=== PATIENT | male | born 1950 | race Caucasian/White ===

== ENCOUNTER 2023-01-02 07:49 | Day surgery (SDC) | payer MEDICARE, SELFPAY ==
--- NOTE | 2023-01-02 06:36 | W.ANESPRE ---
General Info Date of Service Date Performed: 01/02/23 Height: 5 ft 10 in Weight: 113.398 kg Body Mass Index (BMI): 35.9 Surgical Procedure: Operation Date: 01/02/23 10:40 Proposed Procedure Side Surgeon p Cataract Extraction with IOL Implant Right Néstor Laureano MD Meds Allergies and Home Medications Allergies Allergy/AdvReac Type Severity Reaction Status Date / Time chlorthalidone Allergy Skin Rash Verified 01/02/23 09:40 Home Medication Medication Instructions Recorded metformin 850 mg tablet 850 mg PO BIDWMEAL 11/04/15 albuterol sulfate 90 mcg/actuation 2 puff inhalation DIRECTED 12/29/22 aerosol inhaler aspirin 81 mg capsule,delayed 81 mg PO DAILY 12/29/22 release calcium polycarbophil 625 mg 625 mg PO QAM 12/29/22 tablet (FiberCon) felodipine 5 mg tablet,extended 5 mg PO DAILY 12/29/22 release 24 hr fluticasone propionate 50 2 spray intranasal DAILY 12/29/22 mcg/actuation nasal spray,suspension (Flonase Allergy Relief) lisinopril 40 mg tablet 40 mg PO DAILY 12/29/22 simvastatin 20 mg tablet 20 mg PO HS 12/29/22 triamcinolone acetonide 0.1 % 1 applic topical DIRECTED 12/29/22 topical ointment umeclidinium 62.5 mcg/actuation 1 inh inhalation DAILY 12/29/22 blister powder for inhalation (Incruse Ellipta) Current Visit Medications: Current Medications Generic Name Dose Route Start Last Admin Trade Name Freq PRN Reason Stop Dose Admin Acetaminophen 1,000 mg 01/02/23 06:00 Acetaminophen 500 Mg Tab PO Q4H PRN PRN Miscellaneous Medication 0 ml 01/02/23 06:00 Tropicam./Phenyleph. (1/2.5%) 5 Ml Btl OD DIRECTED [facility] Miscellaneous Medication 0 ml 01/02/23 06:00 Prednisolone 1%, Moxifloxacin 0.5%, Nepafenac 0.1% 5ml Btl OD DIRECTED [facility] Tetracaine HCl 0 ml 01/02/23 06:00 Tetracaine 0.5% 4 Ml Btl OD DIRECTED [facility] PFSH Active Problems Active Problems: Problem Status Onset Code Posterior subcapsular age-related cataract, right eye H25.041 Nuclear sclerotic cataract of right eye H25.11 Medical History Medical History Backache COPD (chronic obstructive pulmonary disease) Gout Hypertensive disorder Localized primary carpometacarpal osteoarthrosis Stasis dermatitis Tobacco dependence Trigger finger Type 2 diabetes mellitus Surgical History Surgical History (Updated 01/02/23 @ 08:40 by Sirena Hussein) Hx of hernia repair Hx of thumb surgery Tobacco Smoking/Tobacco Use Status: Current every day Tobacco Type: cigarettes Alcohol Alcohol Intake: never Substance Use Substance use: Never Substance use type: does not use Vital Signs and Lab Results Lab Results Blood Type / Crossmatch: No Data to Display Complete Blood Count: No Data to Display Complete Metabolic Panel: No Data to Display Liver Function Panel: No Data to Display Coagulation Panel: No Data to Display Cardiac Panel: No Data to Display Arterial Blood Gas: No Data to Display Venous Blood Gas: No Data to Display Pancreas Panel: No Data to Display Thyroid Panel: No Data to Display Infectious Disease: No Data to Display Blood Cultures: No Data to Display Toxicology Panel: No Data to Display Anesthesia Assessment and Plan Anesthesia History Personal History: No History of Anesthesia Complications Family History: No Family History of Anesthesia Complications Exercise Tolerance Exercise Tolerance: Metabolic Equivalents>4 Pertinent Negatives Pertinent Negatives: No Symptoms of GERD and No History of CVA/TIA Cardiac & Pulmonary Exam Cardiac Exam: Normal S1/S2 Heart Sounds Pulmonary Exam: Clear Bilateral Breath Sounds Implantable Cardiac Device Does patient have a Pacemaker or an ICD?: No Airway Exam Known Difficult Airway: No Mallampati Class: 2 Mouth Opening: Normal (> 3cm) Thyromental Distance: Greater than 3 cm Neck Range of Motion: Full ROM Neck Circumference: Normal Teeth Condition: Edentulous (Upper. Four lower teeth, per patient they are secure. ) ASA Classification ASA Score: ASA 3 Emergency Case?: No NPO Status NPO Status: NPO Clears >2 hours, Solids >8 hours Anesthesia Plan Resuscitation Status: Full Code Anesthesia Technique: MAC Anesthesia Airway Planned: Natural Airway Monitors Used: Standard Monitors
--- NOTE | 2023-01-02 06:44 | W.PREOPHP ---
Assessment and Plan Assessment and plan (1) Posterior subcapsular age-related cataract, right eye: Status: Acute Assessment and plan: Assessment: Visually significant cataract of the right eye. Plan: Cataract extraction with lens implantation of the right eye. (2) Nuclear sclerotic cataract of right eye: Status: Acute Assessment and plan: Assessment: Visually significant cataract of the right eye. Plan: Cataract extraction with lens implantation of the right eye. History of Present Illness History of Present Illness Chief Complaint: Progressive decreased vision, right eye Narrative: The patient is a 72-year-old male referred by Dr. Lazaro with complaints of progressive decreased vision over the past several months, right eye worse than left. He notes blurred vision at both distance and near, particularly when looking through a rifle scope and significant glare from headlights. On examination he is noted noted to have a significant nuclear/posterior subcapsular cataract in the right eye with visual acuity of 20/200. The option of cataract surgery was offered to the patient and he wished to proceed. Review of Systems All systems reviewed & are unremarkable except as noted in HPI and below PFSH All Active Problems Nuclear sclerotic cataract of right eye (Acute) Posterior subcapsular age-related cataract, right eye (Acute) Medical History Backache COPD (chronic obstructive pulmonary disease) Gout Hypertensive disorder Localized primary carpometacarpal osteoarthrosis Stasis dermatitis Tobacco dependence Trigger finger Type 2 diabetes mellitus Surgical History (Updated 01/02/23 @ 08:40 by Sirena Hussein) Hx of hernia repair Hx of thumb surgery Social History Smoking/Tobacco Use Status: Current every day Tobacco Type: cigarettes Smoking risk assessment performed?: Yes Alcohol Intake: never Drug use: Never Substance use type: does not use Do you feel safe at home: Yes Do you feel safe in your relationship?: Yes Meds Allergies and Home Medications Allergies Allergy/AdvReac Type Severity Reaction Status Date / Time chlorthalidone Allergy Skin Rash Verified 01/02/23 09:40 Home Medications Medication Instructions Recorded Confirmed Type metformin 850 mg tablet 850 mg PO BIDWMEAL 11/04/15 01/02/23 History albuterol sulfate 90 mcg/actuation 2 puff inhalation DIRECTED 12/29/22 12/30/22 History aerosol inhaler aspirin 81 mg capsule,delayed 81 mg PO DAILY 12/29/22 01/02/23 History release calcium polycarbophil 625 mg 625 mg PO QAM 12/29/22 01/02/23 History tablet (FiberCon) felodipine 5 mg tablet,extended 5 mg PO DAILY 12/29/22 01/02/23 History release 24 hr fluticasone propionate 50 2 spray intranasal DAILY 12/29/22 01/02/23 History mcg/actuation nasal spray,suspension (Flonase Allergy Relief) lisinopril 40 mg tablet 40 mg PO DAILY 12/29/22 01/02/23 History simvastatin 20 mg tablet 20 mg PO HS 12/29/22 01/02/23 History triamcinolone acetonide 0.1 % 1 applic topical DIRECTED 12/29/22 12/30/22 History topical ointment umeclidinium 62.5 mcg/actuation 1 inh inhalation DAILY 12/29/22 01/02/23 History blister powder for inhalation (Incruse Ellipta) Exam Eyes Other: Most recent examination reveals uncorrected visual acuity of 20/200 OD, 20/20 OS. Intraocular pressure is 20 OU. Extraocular motility is full. Slit-lamp examination is significant for pupils dilating to 6 mm OU. In the right eye a moderate nuclear cataract is present with severe posterior subcapsular cataract. There is no view of the retina in the right eye due to the dense cataract. In the left eye there is a mild nuclear and cortical cataract. Disc cupping is 0.65 OD, 0.55 OS. Resp Auscultation: clear to auscultation bilaterally Cardio Rate: regular rate Rhythm: regular rhythm
[2023-01-02 08:26] VITALS: BMI 35.9
[2023-01-02] MEDS: Tropicam./Phenyleph. (1/2.5%) 5 ML BTL OD ×3 (08:45→09:03)
[2023-01-02] MEDS: Balanced Salt Soln.-PLUS 500 ML BAG (10:06)
[2023-01-02] MEDS: Tetracaine 0.5% 4 ML BTL OD (10:06)
[2023-01-02] MEDS: Lidocaine 2% Jelly 6 ML SYR (10:07)
[2023-01-02] MEDS: Duovisc Viscoelastic System EACH 1 EACH (10:07)
[2023-01-02] MEDS: Lidocaine 1% Pres-Free 5 ML VIAL (10:07)
[2023-01-02] MEDS: Trypan Blue 0.06% 0.5 ML SYR (10:09)
[2023-01-02] MEDS: Povidone-Iodine Ophth 30 ML BTL (10:09)
--- NOTE | 2023-01-02 10:27 | W.PM.DSUDISC ---
Date of service: 01/02/23 Time of Service: 10:27 Discharge Plan Disposition Patient Disposition: Home Discharge Details Attending Provider: Néstor Laureano Primary Care Provider: Ember Chacon Home Meds and New Rx's Prescriptions: No Action metformin 850 MG tablet 850 mg PO BIDWMEAL felodipine 5 mg Tablet Extended Release 24 Hr 5 mg PO DAILY aspirin 81 mg Capsule,Delayed Release(Dr/Ec) 81 mg PO DAILY simvastatin 20 mg Tablet 20 mg PO HS triamcinolone acetonide 0.1 % Ointment 1 applic TOPICAL DIRECTED calcium polycarbophil [FiberCon] 625 mg Tablet 625 mg PO QAM albuterol sulfate 90 mcg/actuation Hfa Aerosol Inhaler 2 puff INHALATION DIRECTED lisinopril 40 mg Tablet 40 mg PO DAILY fluticasone propionate [Flonase Allergy Relief] 50 mcg/actuation [place],Suspension 2 spray INTRANASAL DAILY Incruse Ellipta 62.5 mcg/actuation Blister With Device 1 inh INHALATION DAILY Discharge Instructions Stand Alone Forms: Post-op Topical Cataract, Yosvany King (DSU) Discharge Orders Discharge Orders: Discharge Order (Routine); Ordered 01/02/23 Ordered By: Néstor Laureano DS: Diagnosis Discharge Diagnosis (1) Posterior subcapsular age-related cataract, right eye: Status: Resolved (2) Nuclear sclerotic cataract of right eye: Status: Resolved
--- NOTE | 2023-01-02 10:28 | ROE_ITS ---
Date of service: 01/02/23 Time of Service: 10:28 Operative Note Operative Note DATE OF PROCEDURE: 01/02/23 PRE-OP DIAGNOSIS: Dense nuclear/posterior subcapsular cataract, right eye Poor red reflex, right eye secondary to cataract POST-OP DIAGNOSIS: same PROCEDURE: Cataract extraction using phacoemulsification with intraocular lens implant, right eye SURGEON: Néstor Laureano ANESTHESIA TYPE: Local By Surgeon and MAC Refer to Anesthesia Record ESTIMATED BLOOD LOSS: 0 PATHOLOGY: none sent COMPLICATIONS: None Patient was transported to: same day Patient's condition: stable Implants: Chris [employer] Chris Tecnis Eyhance [id number] Indications: Progressive visual loss due to cataract, right eye Procedure Description: CATARACT SURGERY OPERATIVE REPORT PREOPERATIVE DIAGNOSIS: 1. Dense nuclear/posterior subcapsular cataract, right eye 2. Poor red reflex, right eye secondary to cataract POSTOPERATIVE DIAGNOSIS: Same OPERATION: 1. Cataract extraction using phacoemulsification with posterior chamber intraocular lens implant, right eye. 2. Capsular staining with VisionBlue IOL: IOL Extension Course Coordinator/Model: Chris [employer] Chris Tecnis Eyhance [id number] IOL Power: + 21.5 diopters IOL Serial Number: [id number] Optic Diameter: 6.0mm Haptic/Overall Diameter: 13.0mm PHACO INFO: Sulaiman Crzyfishurion Vision System with OZil and Active Fluidics Cumulative Dispersed Energy (CDE): 31.42 seconds SURGEON: Néstor Laureano MD, EJ ANESTHESIA: Monitored Anesthesia Care (MAC), with local sub-tenon's anesthetic infiltration COMPLICATIONS: None SPECIMENS: None INDICATIONS FOR PROCEDURE: Patient is a 72-year-old male with history of diminished visual acuity in his right eye secondary to the development of dense nuclear/posterior subcapsular cataract. He is significantly symptomatic that he desires cataract surgery and attempt to improve and maximize his vision. The option of cataract surgery was offered to the patient and he wished to proceed. PROCEDURE: The correct surgical eye was identified and marked as the right eye and the pupil was dilated in the preoperative area using mydriatics and cycloplegics. The dilated pupil size was 7.0 mm. The patient elected to proceed without oral sedation. The patient was brought to the operating room where cardiopulmonary monitoring was instituted and surgical time-out was performed, confirming the correct operative eye and IOL power. Topical anesthesia was administered and ophthalmic povidone-iodine 5% was instilled into the conjunctival fornices. Lidocaine gel was applied to the cornea and the kevin-ocular area was prepped with Betadine 10% solution and draped in the usual sterile fashion for intraocular surgery, including an aperture drape. A Tegaderm transparent film dressing was cut in half and used to cover the lashes and lid margins. Care was taken to sequester the lashes and lid margins under the Tegaderm dressing. A lid speculum was placed between the lids of the operative eye and the Sulaiman LuxOR Revalia operating microscope was maneuvered into position. Darnell scissors were then used to make a conjunctival buttonhole approximately 6mm posterior to the limbus in the inferonasal quadrant. Blunt dissection was carried out to expose bare sclera, and a blunt-tipped sub-tenon?s anesthesia cannula was introduced and passed posteriorly along the globe where non- preserved plain lidocaine was injected into posterior sub-Tenon?s space. A sideport knife was used to make a paracentesis port inferotemporally. VisionBlue was injected into the anterior chamber and allowed to sit for 10 to 12 seconds. Intraocular phenylephrine/lidocaine was injected into the anterior chamber. The anterior chamber was filled with viscoelastic. A keratome knife was used to construct a 2-plane near-clear corneal tunnel extending 2.0mm into clear cornea superiortemporally. A flap was raised on the anterior capsule and capsulorhexis forceps were used to complete a continuous curvilinear capsulorhexis of 5.0 mm. Balanced salt solution was then used to perform cortical cleaving hydrodissection and nuclear hydrodelineation until the lens could be freely rotated within the capsular bag. The lens nucleus was then disassembled and removed within the capsular bag and iris plane using phacoemulsification. Residual cortical material was removed using the I/A handpiece. The posterior capsule was carefully polished to remove as much residual lens epithelial cells as safely possible. The posterior capsule was noted to be quite thin. The capsular bag was then inflated and the anterior chamber deepened with viscoelastic. The lens implant described above was inserted into the capsular bag using the Chris and Sia Simplicity pre-loaded injector. A Kuglen hook was used to dial the IOL into position. Residual viscoelastic was then removed first from posterior to the IOL, then from the anterior chamber using the I/A handpiece. The lens implant was noted to center nicely within the capsular bag. The incisions were stromally hydrated, and the anterior chamber was reformed using BSS. Then 0.5cc of moxifloxacin 1.0mg/ml were injected into the capsular bag and anterior chamber. The incisions were checked with a Weck spear and found to be secure. Several drops of ophthalmic povidone-iodine 5% were then applied to the eye followed by two drops of Imprimis combination prednisolone/moxifloxacin/nepafenac solution. The drapes were removed and a clear plastic protective eye shield was placed over the eye. The patient was then returned to Same Day Surgery in stable condition.
[2023-01-02 10:30] VITALS: BP 139/92; PULSE 70; RESP 18; TEMP 36.7; O2SAT 96
--- NOTE | 2023-01-02 11:30 | W.ANESPOSTOP ---
Postoperative Evaluation Date, Time and Location Date Performed: 01/02/23 Time Performed: 10:30 Patient Location: Day Surgery Unit Vital Signs Most Recent Imported Vital Signs: Most Recent Vital Signs Temp Pulse Resp BP Pulse Ox 36.7 C 70 18 139/92 H 96 01/02/23 10:30 01/02/23 10:30 01/02/23 10:30 01/02/23 10:30 01/02/23 10:30 Pain Score Most Recent Pain Score: Most Recent Pain Score Pain Level 0 01/02/23 10:30 Assessment Mental Status: Awake (Alert & Oriented to Patient Baseline) Airway and Respiratory Function: Patent airway with normal (patient baseline) respiratory exam Cardiovascular Function: Hemodynamically Stable Hydration Status: Adequately Hydrated Nausea & Vomiting: No Nausea or Vomiting Pain: Pt. Denies Any Pain Peripheral Nerve Block: Other (Local by Dr. Laureano)
== END 2023-01-02 10:41 | disposition home or self-care (01) ==
PROVIDERS: PCP Internal Medicine; Visit Provider Ophthalmology
PROC: (CPT 66982; principal; 2023-01-02 10:30)
DX: H25.041 Posterior subcapsular polar age-related cataract, right eye (principal); H26.8 Other specified cataract
CPT/HCPCS: 66982; V2632